=== PATIENT | female | born 1960 | race Caucasian/White ===

== ENCOUNTER 2022-02-27 11:16 | Emergency (ER) | payer BC, SELFPAY ==
--- NOTE | ~2022-02-27 | XR_ITS ---
EXAMINATION: XR elbow RT min 3V DATE: 02/27/2022 11:37 INDICATION: Right elbow injury. Fall. TECHNIQUE: 4 views of right elbow were obtained. COMPARISON: None. FINDINGS: Bone alignment is normal. There is a nondisplaced fracture of radial head. There is mild el bow joint osteoarthritis. There is an enthesophyte at lateral humeral epicondyle. There is an elbow j oint effusion. IMPRESSION: 1. Nondisplaced radial head fracture. 2. Mild elbow joint osteoarthritis. 3. Elbow joint effusion. Reviewed, dictated and finalized at location A.
--- NOTE | ~2022-02-27 | XR_ITS ---
EXAMINATION: XR forearm RT 2V DATE: 02/27/2022 11:38 INDICATION: Right elbow injury and pain. TECHNIQUE: 2 views of right forearm were obtained. COMPARISON: None. FINDINGS: Bone alignment is normal. No visible fracture. There is mild elbow joint osteoarthritis. Th ere is an enthesophyte at lateral humeral epicondyle. There is an elbow joint effusion. IMPRESSION: 1. Elbow joint effusion. 2. Mild elbow joint osteoarthritis. Reviewed, dictated and finalized at location A.
--- NOTE | 2022-02-27 11:20 | ED.UPPEXIN ---
HPI - Extremity Injury (Upper) General Chief Complaint: Extremity Injury, Upper Stated Complaint: right elbow down injury Time Seen by Provider: 02/27/22 11:20 Source: patient, family and RN notes reviewed History of Present Illness HPI narrative: Patient is a 61-year-old female who presents the urgent care with complaints of right elbow pain, forearm pain and right wrist pain. Patient states that approximately 3 hours ago she tripped and fell onto the concrete landing on her right elbow while walking her dog. Patient states that she is used ice to the elbow but has not taken anything for pain. Patient denies of any other injuries from the fall. Denies of hitting her head or any loss of consciousness. Patient states that she is unable to straighten the right arm due to pain. No other complaints. No acute distress noted. Patient aware of the plan of care. Some parts of this dictation were generated by voice recognition software and may contain typographical and/or grammatical inaccuracies. Related Data Home Medications Medication Instructions Recorded Confirmed alprazolam 1 mg tablet 1 tablet PO TID PRN Anxiety 02/27/22 02/27/22 Allergies Allergy/AdvReac Type Severity Reaction Status Date / Time No Known Allergies Allergy Unverified 04/18/18 17:42 Review of Systems Review of Systems: CONSTITUTIONAL: Denies fever, chills, or sweats. EYES: Denies visual changes, redness, or discharge. ENT: Denies rhinorrhea, congestion, sore throat, or otalgia. CARDIOVASCULAR: Denies chest pain, palpitations, or edema. RESPIRATORY: Denies cough or dyspnea. GASTROINTESTINAL: Denies abdominal pain, nausea, vomiting, or diarrhea. GENITOURINARY: Denies dysuria or hematuria. SKIN: Denies rash or itching. MUSCULOSKELETAL: Denies back pain, joint pain, or myalgia. NEUROLOGIC: Denies headache, numbness, or weakness. All other systems reviewed are negative, except as documented in HPI. PMFSH Comments At the time of my signature, I reviewed and agree with the nursing past medical, surgical, social, and family history. There is no relevant family history pertinent to the patient complaint. Exam Narrative: GENERAL: This is a well-nourished, well-developed patient, in no apparent distress. HEAD: normocephalic, atraumatic. EYES: PERRL. Sclera clear/white. Vision is grossly intact. EARS: External ears normal NOSE: External nose normal with no obvious nasal discharge, nares without redness, no rhinorrhea. THROAT: Mucous membranes moist NECK: Neck supple CARDIOVASCULAR: Regular rate and rhythm without murmurs, gallops, or rubs. RESPIRATORY: Clear to auscultation. Breath sounds equal bilaterally. No wheezes, rales, or rhonchi. SKIN: warm, intact with no suspicious lesions or rash, good texture and turgor. NEURO: awake, alert, and oriented to person, place and time. There were no obvious focal neurologic abnormalities. EXTREMITIES: Full range of motion to right upper extremity not tested due to pain. Unable to straighten the arm due to pain. Positive strong right radial pulse with capillary refill less than 2 seconds. No obvious deformity or fracture to the right upper extremity. Course Course Level of Care: Express Care Visit Vital Signs Vital signs: Vital Signs Temperature 99.1 F 02/27/22 11:28 Pulse Rate 73 02/27/22 11:28 Respiratory Rate 18 02/27/22 11:28 Blood Pressure 173/78 H 02/27/22 11:28 Pulse Oximetry 100 02/27/22 11:28 Oxygen Delivery Room Air 02/27/22 11:28 Temperature 99.1 F 02/27/22 11:28 Pulse Rate 73 02/27/22 11:28 Respiratory Rate 18 02/27/22 11:28 Blood Pressure 173/78 H 02/27/22 11:28 Pulse Oximetry 100 02/27/22 11:28 Oxygen Delivery Room Air 02/27/22 11:28 Reviewed-patient is informed that they may have pre-hypertension or hypertension based on a blood pressure reading in the department. I recommend the patient call the primary care provider listed on their discharge instruct
[2022-02-27 11:28] VITALS: BP 173/78; PULSE 73; RESP 18; TEMP 37.3; O2SAT 100
== END 2022-02-27 12:00 | disposition home or self-care (01) ==
PROVIDERS: Emergency Provider Nurse Practitioner Family; PCP Internal Medicine
DX: S52.124A Nondisplaced fracture of head of right radius, initial encounter for closed fracture (principal); W01.0XXA Fall on same level from slipping, tripping and stumbling without subsequent striking against object, initial encounter; Y93.K1 Activity, walking an animal; Y92.9 Unspecified place or not applicable
CPT/HCPCS: 29105; 73080; 73090; 99214; A4565; G0463